=== PATIENT | female | born 1965 | race African-American/Black ===

== ENCOUNTER 2017-04-06 03:41 | Emergency (ER) | payer MEDICAID, OTHER ==
[~2017-04-06] VITALS: Ht 167.6 cm; Wt 59.0 kg
[~2017-04-06 03:41] MED LIST: DIPHENHYDRAMINE25 M1 ORAL; IBUPROFEN600 MG ORAL; IBUPROFEN800 MG ORAL; NKM; NORCO 5-325 TA1 EACH ORAL; ONDANSETRON ODT4 MG ORAL; PREDNISONE20 MG ORAL; TRAMADOL HCL50 MG ORAL; VALIUM5 MG ORAL; ZANTAC150 MG ORAL; ZOFRAN4 MG ORAL
[2017-04-06 04:02] VITALS: BP 109/71
--- NOTE | 2017-04-06 04:18 | Emergency Room Report ---
History of Present Illness General Chief Complaint: Chest Pain Source: Patient Present Illness HPI 51YOF walk-in with 1.5 hours of left sided reproducible chest pain. Sharp, non- radiating, worse with movement. No assoc fever/chills, cough, SOB, abd pain, nausea/vomiting, headache. Didnt take anything for the pain. Denies smoking, ETOH, drug use. No sick contacts. No history of ACS or PE in self, family. Allergies: Coded Allergies: No Known Allergies (Verified Allergy, Unknown, 10/10/08) Patient History Past Medical History: none Past Surgical History: none Pertinent Family History: none Social History: Denies: alcohol use, drug use, smoking Last Menstrual Period: NONE Now: No Immunizations: UTD Reviewed Nursing Documentation: PMH: Agreed, PSxH: Agreed Nursing Documentation-PMH Past Medical History: No Stated History Review of Systems All Other Systems: negative except mentioned in HPI Physical Exam Vital Signs Date Time Temp Pulse Resp B/P Pulse Ox O2 Delivery O2 Flow Rate FiO2 04/06/17 03:43 97.3 66 18 120/75 99 Room Air Sp02 EP Interpretation: reviewed, normal General Appearance: normal inspection, well appearing, no apparent distress, alert, GCS 15, non-toxic Head: normocephalic, atraumatic Eyes: bilateral eye EOMI, bilateral eye PERRL ENT: normal ENT inspection, hearing grossly normal, normal voice Neck: normal inspection, full range of motion, supple, no bony tend Respiratory: normal inspection, lungs clear, normal breath sounds, no respiratory distress, no retraction, no wheezing, other - chest pain reproducible with light palpation to left side of chest. No rash Cardiovascular #1: regular rate, rhythm, no edema Gastrointestinal: normal inspection, normal bowel sounds, non tender, soft, no guarding, no hernia Genitourinary: no CVA tenderness Musculoskeletal: normal inspection, back normal, normal range of motion, Claudia' s Sign negative Neurologic: normal inspection, alert, oriented x3, responsive, legal counsel III-XII nml as tested, motor strength/tone normal, speech normal Psychiatric: normal inspection, judgement/insight normal, mood/affect normal Skin: normal inspection, normal color, no rash Lymphatic: normal inspection Medical Decision Making Diagnostic Impression: Primary Impression: Chest pain Qualified Codes: R07.9 - Chest pain, unspecified Additional Impression: DAVID (acute kidney injury) ER Course Chest pain - VSS. Afebrile. - No clinical signs of PNA - Unlikely ACS. ECG unchanged from comparison to August 2016 ECG. Troponin 0. No new ischemia. No CAD risk factors - Mild DAVID on labs. Patient "Swears" she drinks a lot of water - Low suspicion for PE - no unilateral leg pain/swelling, no hypoxia, tachycardia. No S1Q3T3 on ECG. No other risk factors for PE - Improved pain Sp IV toradol - Gave copy of labs, ECG, advised PMD followup DC Home EKG Diagnostic Results Rate: normal Rhythm: NSR ST Segments: no acute changes ASA given to the pt in ED: No Rhythm Strip Diag. Results EP Interpretation: yes Rate: 59 Rhythm: NSR, no PVC's, no ectopy Chest X-Ray Diagnostic Results EP Interpretation: Yes Findings: no consolidation, no effusion, no pneumothorax, no acute cardiopulmonary disease Number of Views: 1 Last Vital Signs Date Time Temp Pulse Resp B/P Pulse Ox O2 Delivery O2 Flow Rate FiO2 04/06/17 03:43 97.3 66 18 120/75 99 Room Air Status: improved Disposition: HOME, SELF-CARE Referrals: [facility] (PCP) PAWEL VALENTINE M.D. April 06, 2017 04:18
[2017-04-06] MEDS: Ketorolac 60mg Inj IM ONE ×2 (04:19→04:39)
[2017-04-06 04:42] LABS: BASOPHILS % (AUTO) 0.7 % (0.0-2.0); EOSINOPHILS % (AUTO) 0.8 % (0.0-3.0); MEAN CORPUSCULAR HEMOGLOBIN 28.9 PG (27.0-31.0); MEAN CORPUSCULAR HGB CONC 31.8 G/DL (32.0-36.0); MEAN CORPUSCULAR VOLUME 91 FL (80-99); MONOCYTES % (AUTO) 8.8 % (1.0-10.0); NEUTROPHILS % (AUTO) 40.7 % (45.0-75.0); PLATELET COUNT 283 K/UL (150-450); RED BLOOD COUNT 4.04 M/UL (4.20-5.40); RED CELL DISTRIBUTION WIDTH 12.3 % (11.6-14.8); WHITE BLOOD COUNT 5.8 K/UL (4.8-10.8)
[2017-04-06] MEDS ORDERED: Ketorolac 30mg Inj IV ONE (04:45)
[2017-04-06 04:58] LABS: ALANINE AMINOTRANSFERASE 17 U/L (3-33); ALBUMIN/GLOBULIN RATIO 1.5 (1.0-2.7); ANION GAP 13 (5-15); ASPARTATE AMINO TRANSFERASE 26 U/L (5-40); CALCIUM 9.9 mg/dL (8.6-10.2); CARBON DIOXIDE 28 mEQ/L (20-30); CHLORIDE 99 mEQ/L (98-107); GLOMERULAR FILTRATION RATE > 60 mL/min (>60); HEMOLYSIS 4; POTASSIUM 3.9 mEQ/L (3.4-4.9); SODIUM 140 mEQ/L (135-145)
[2017-04-06 05:00] LABS: TROPONIN I < 0.30 ng/mL (<=0.30)
[2017-04-06 05:08] LABS: CKMB < 1.5 ng/mL (< 3.8)
[2017-04-06 05:20] VITALS: BP 110/74
--- NOTE | 2017-04-08 14:48 | Cardiology Report ---
APPROVED REPORT EKG Measurement Heart [id number] Normal sinus rhythm Nonspecific T wave abnormality Abnormal ECG
--- NOTE | 2017-04-09 08:33 | Diagnostic Imaging Report ---
Indication: Chest Pain Comparison: 09/09/16 A single view chest radiograph was obtained. Findings: Cardiomediastinal appearance is within normal limits for age. Pulmonary vascularity is appropriate. The diaphragmatic contour is smooth and costophrenic angles are sharp. No pleural effusions are identified. The bones are unremarkable. Impression: No acute findings
== END 2017-04-06 05:20 | disposition home or self-care (01) ==
LOC: EMR 03:59
DX: R07.89 Other chest pain (principal); N17.9 Acute kidney failure, unspecified
CPT/HCPCS: 36415; 71010; 80053; 82550; 82553; 84484; 85025; 93005; 96374

== ENCOUNTER 2017-04-07 15:24 | Emergency (ER) | payer MEDICAID, OTHER ==
[~2017-04-07] VITALS: Ht 162.6 cm; Wt 72.6 kg
[2017-04-07] MEDS ORDERED: Activated Charcoal 50gm/240ml Btl ORAL ONE (15:30)
[2017-04-07 15:56] VITALS: BP 116/77
[2017-04-07 15:56] LABS: BASOPHILS % (AUTO) 2.5 % (0.0-2.0); MEAN CORPUSCULAR HEMOGLOBIN 31.3 PG (27.0-31.0); MEAN CORPUSCULAR HGB CONC 34.6 G/DL (32.0-36.0); MEAN CORPUSCULAR VOLUME 90 FL (80-99); MEAN PLATELET VOLUME 5.5 FL (6.5-10.1); MONOCYTES % (AUTO) 6.8 % (1.0-10.0); NEUTROPHILS % (AUTO) 42.7 % (45.0-75.0); PLATELET COUNT 226 K/UL (150-450); RED BLOOD COUNT 3.74 M/UL (4.20-5.40); RED CELL DISTRIBUTION WIDTH 12.6 % (11.6-14.8); WHITE BLOOD COUNT 5.7 K/UL (4.8-10.8)
[2017-04-07 16:10] LABS: TROPONIN I < 0.30 ng/mL (<=0.30)
[2017-04-07 16:14] LABS: ACETAMINOPHEN < 10 ug/mL (10-30); ALANINE AMINOTRANSFERASE 15 U/L (3-33); ALBUMIN/GLOBULIN RATIO 1.4 (1.0-2.7); ALCOHOL 22 mg/dL; ANION GAP 20 (5-15); ASPARTATE AMINO TRANSFERASE 24 U/L (5-40); CARBON DIOXIDE 23 mEQ/L (20-30); CHLORIDE 99 mEQ/L (98-107); CREATININE 1.1 mg/dL (0.5-0.9); GLOMERULAR FILTRATION RATE > 60 mL/min (>60); HEMOLYSIS 5; POTASSIUM 3.7 mEQ/L (3.4-4.9); SODIUM 142 mEQ/L (135-145); TOTAL PROTEIN 7.2 g/dL (6.6-8.7)
[2017-04-07 16:24] LABS: CKMB < 1.5 ng/mL (< 3.8)
[2017-04-07 18:33] VITALS: BP 100/61
[2017-04-07 19:15] VITALS: BP 91/55
--- NOTE | 2017-04-07 19:25 | Emergency Room Report ---
History of Present Illness General Chief Complaint: Overdose Source: Patient, EMS (ERNESTO FUNG M.D.) Present Illness HPI 51-year-old female presents ED for evaluation. Patient brought in by EMS for overdose. Patient allegedly took unknown amount of multiple medications. EMS found empty bottles of ibuprofen, naproxen and [place] near the patient. Patient texted her boyfriend who then called 911. Upon arrival patient appears altered with residue around her mouth. Patient is breathing on her own. Patient denies any previous psychiatric history. No prior episode of suicide. No reported drug use. No other aggravating relieving factors. No other associated symptom (ERNESTO FUNG M.D.) Allergies: Coded Allergies: No Known Allergies (Verified , 10/10/08) UNABLE TO ASSESS (Unverified , 04/07/17) Patient History Past Medical History: none Past Surgical History: none Pertinent Family History: none Social History: Denies: alcohol use, drug use, smoking Last Menstrual Period: unknown Now: No Immunizations: UTD Reviewed Nursing Documentation: PMH: Agreed, PSxH: Agreed (ERNESTO FUNG M.D.) Nursing Documentation-PMH Past Medical History Deferred: Pt Cognitively Impaired Past Medical History: Deferred (ERNESTO FUNG M.D.) Review of Systems All Other Systems: negative except mentioned in HPI (ERNESTO FUNG M.D.) Physical Exam Vital Signs Date Time Temp Pulse Resp B/P Pulse Ox O2 Delivery O2 Flow Rate FiO2 04/07/17 15:24 99.7 103 16 132/88 100 Room Air Sp02 EP Interpretation: reviewed, normal General Appearance: no apparent distress, lethargic Head: normocephalic Eyes: bilateral eye PERRL, bilateral eye normal inspection ENT: normal ENT inspection Neck: normal inspection Respiratory: chest non-tender, lungs clear, normal breath sounds, speaking full sentences Cardiovascular #1: regular rate, rhythm, no edema Gastrointestinal: normal inspection Rectal: deferred Genitourinary: no CVA tenderness Musculoskeletal: normal inspection Neurologic: other - altered Psychiatric: other - altered Skin: normal inspection Lymphatic: normal inspection (ERNESTO FUNG M.D.) Medical Decision Making Diagnostic Impression: Primary Impression: Drug overdose Qualified Codes: T50.902A - Poisoning by unspecified drugs, medicaments and biological substances, intentional self-harm, initial encounter Labs Test 04/07/17 15:30 04/07/17 17:40 White Blood Count 5.7 K/UL (4.8-10.8) Red Blood Count 3.74 M/UL (4.20-5.40) Hemoglobin 11.7 G/DL (12.0-16.0) Hematocrit 33.8 % (37.0-47.0) Mean Corpuscular Volume 90 FL (80-99) Mean Corpuscular Hemoglobin 31.3 PG (27.0-31.0) Mean Corpuscular Hemoglobin Concent 34.6 G/DL (32.0-36.0) Red Cell Distribution Width 12.6 % (11.6-14.8) Platelet Count 226 K/UL (150-450) Mean Platelet Volume 5.5 FL (6.5-10.1) Neutrophils (%) (Auto) 42.7 % (45.0-75.0) Lymphocytes (%) (Auto) 47.0 % (20.0-45.0) Monocytes (%) (Auto) 6.8 % (1.0-10.0) Eosinophils (%) (Auto) 1.0 % (0.0-3.0) Basophils (%) (Auto) 2.5 % (0.0-2.0) Sodium Level 142 mEQ/L (135-145) Potassium Level 3.7 mEQ/L (3.4-4.9) Chloride Level 99 mEQ/L (98-107) Carbon Dioxide Level 23 mEQ/L (20-30) Anion Gap 20 (5-15) Blood Urea Nitrogen 11 mg/dL (7-23) Creatinine 1.1 mg/dL (0.5-0.9) Estimat Glomerular Filtration Rate > 60 mL/min (>60) Glucose Level 104 mg/dL (74-106) Calcium Level 10.0 mg/dL (8.6-10.2) Total Bilirubin 0.9 mg/dL (0.0-1.2) Aspartate Amino Transf (AST/SGOT) 24 U/L (5-40) Alanine Aminotransferase (ALT/SGPT) 15 U/L (3-33) Alkaline Phosphatase 83 U/L (35-104) Total Creatine Kinase 96 U/L (26-140) Creatine Kinase MB < 1.5 ng/mL (< 3.8) Creatine Kinase MB Relative Index Troponin I < 0.30 ng/mL (<=0.30) Total Protein 7.2 g/dL (6.6-8.7) Albumin 4.3 g/dL (3.5-5.2) Globulin 2.9 g/dL Albumin/Globulin Ratio 1.4 (1.0-2.7) Salicylates Level < 1 mg/dL (10-30) Acetaminophen Level < 10 ug/mL (10-30) Serum Alcohol 22 mg/dL Urine Opiates Screen Negative (NEGATIVE) Urine Barbiturates Screen Negative (NEGATIVE) Phencyclidine (PCP) Screen Negative (NEGATIVE) Urine Amphetamines Screen Positive (NEGATIVE) Urine Benzodiazepines Screen Negative (NEGATIVE) Urine Cocaine Screen Negative (NEGATIVE) Urine Marijuana (THC) Screen Negative (NEGATIVE) (ERNESTO FUNG M.D.) ER Course Patient signed out to me. She had an overdose on Williams and course of ibuprofen. Her alcohol level was unremarkable. Tylenol and opiates are negative. I doubt that she took this. She did wrote a note regarding suicidality so she will be hold for psychiatric evaluation. She slept the night without a problem. She's been stable. She walked to the bathroom without a problem. Psychiatric evaluation pending. (LAUREANO NICHOLAS M.D.) ER Course The patient was seen and evaluated by Dr. Fowler for psychiatric consult. Patient was noted to have negative acetaminophen levels as well as negative drug screen for opiates. Patient was medically cleared. Dr. Fowelr stated that the patient was safe for discharge. Patient was given referrals for outpatient mental health. (Stoney García) EKG Diagnostic Results Rate: normal Rhythm: NSR ST Segments: no acute changes ASA given to the pt in ED: No (ERNESTO FUNG M.D.) Rhythm Strip Diag. Results EP Interpretation: yes Rhythm: NSR, no PVC's, no ectopy (ERNESTO FUNG M.D.) Last Vital Signs Date Time Temp Pulse Resp B/P Pulse Ox O2 Delivery O2 Flow Rate FiO2 04/07/17 18:33 99 26 100/61 98 Room Air 04/07/17 15:24 99.7 Status: unchanged (ERNESTO FUNG M.D.) Status: improved (Stoney García) Disposition: HOME, SELF-CARE Condition: Stable Referrals: [facility] (PCP) ERNESTO FUNG M.D. April 07, 2017 19:25 LAUREANO NICHOLAS M.D. April 08, 2017 06:02 Stoney García April 08, 2017 10:12
[2017-04-07 19:44] LABS: ACETAMINOPHEN < 10 ug/mL (10-30)
[2017-04-07 21:00] VITALS: BP 103/69
[2017-04-08] VITALS (8 sets, daily range): BP systolic 91–115; BP diastolic 56–70
--- NOTE | 2017-04-08 09:04 | Diagnostic Imaging Report ---
Indication: Cough Technique: Single portable AP view of the chest. Findings: Comparison: 04/06/17 The bones and extra pulmonary soft tissues, cardiomediastinal silhouette, pulmonary vasculature and parenchyma, and pleural surfaces remain unremarkable. IMPRESSION: Negative portable AP chest, unchanged.
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
--- NOTE | 2017-04-10 18:38 | Cardiology Report ---
APPROVED REPORT EKG Measurement Heart [id number] Normal sinus rhythm Possible Left atrial enlargement Nonspecific T wave abnormality Abnormal ECG
== END 2017-04-08 12:56 | disposition home or self-care (01) ==
LOC: EDBD 15:24 → EMR 15:30
DX: T39.312A Poisoning by propionic acid derivatives, intentional self-harm, initial encounter (principal); T40.2X2A Poisoning by other opioids, intentional self-harm, initial encounter; R41.82 Altered mental status, unspecified; Y92.89 Other specified places as the place of occurrence of the external cause
CPT/HCPCS: 36415; 71010; 80053; 80300; 80329; 82550; 82553; 84484; 85025; 93005; 96360; 99285; G0480

== ENCOUNTER 2017-06-30 01:13 | Emergency (ER) | payer MEDICAID, OTHER ==
[~2017-06-30] VITALS: Ht 167.6 cm; Wt 61.2 kg
--- NOTE | 2017-06-30 02:04 | Emergency Room Report ---
History of Present Illness General Chief Complaint: Overdose Source: Patient Present Illness HPI Is a 52-year-old female who came in with chief complaint of overdose. She said she unable to sleep and took a couple of Ambien. After 30 minutes or an hour she couldn't sleep and she took some more. In toto she took 5. She called her cousin and because of the number of pills that she took she drove here to be evaluated. Patient denies suicidal thoughts or homicidal thought. Denies any hallucination. Denies any alcohol drugs. She is sleepy now. Allergies: Coded Allergies: No Known Allergies (Verified , 10/10/08) UNABLE TO ASSESS (Unverified , 04/07/17) Patient History Past Medical History: see triage record, old chart reviewed Past Surgical History: other Pertinent Family History: none Social History: Denies: smoking Now: No Immunizations: other Reviewed Nursing Documentation: PMH: Agreed, PSxH: Agreed Nursing Documentation-PMH History Of Psychiatric Problem: Yes Review of Systems Eye: Denies: blurred vision, eye pain ENT: Denies: ear pain, nose congestion, throat swelling Respiratory: Denies: cough, shortness of breath Cardiovascular: Denies: chest pain, palpitations Gastrointestinal: Denies: abdominal pain, diarrhea, nausea, vomiting Musculoskeletal: Denies: back pain, joint pain Skin: Denies: rash Neurological: Denies: headache, numbness Endocrine: Denies: increased thirst, increased urine Hematologic/Lymphatic: Denies: easy bruising All Other Systems: negative except mentioned in HPI Physical Exam Vital Signs Date Time Temp Pulse Resp B/P Pulse Ox O2 Delivery O2 Flow Rate FiO2 06/30/17 01:19 97.9 91 16 120/80 99 Room Air vitals megan Sp02 EP Interpretation: reviewed, normal General Appearance: well appearing, no apparent distress, other - Drowsy and sleepy but answering questions appropriately Head: normocephalic, atraumatic Eyes: bilateral eye EOMI, bilateral eye PERRL ENT: hearing grossly normal, normal pharynx Neck: full range of motion, supple, no meningismus Respiratory: chest non-tender, lungs clear, normal breath sounds Cardiovascular #1: regular rate, rhythm, no murmur Gastrointestinal: normal bowel sounds, non tender, no mass, no organomegaly, no bruit, non-distended Musculoskeletal: back normal, gait/station normal, normal range of motion Psychiatric: mood/affect normal Skin: warm/dry Medical Decision Making Diagnostic Impression: Primary Impression: Drug overdose Qualified Codes: T50.901A - Poisoning by unspecified drugs, medicaments and biological substances, accidental (unintentional), initial encounter ER Course Patient presents with accidental overdose. She's not suicidal or homicidal. She sleeping now. We'll discharge home in the morning. Lab Results Impression labs unremarkable Last Vital Signs Date Time Temp Pulse Resp B/P Pulse Ox O2 Delivery O2 Flow Rate FiO2 06/30/17 01:19 97.9 91 16 120/80 99 Room Air Status: improved Disposition: HOME, SELF-CARE Condition: Stable Patient Instructions: OVERDOSE, Accidental (Adult) Additional Instructions: Taking medication as prescribed. Followup with your Dr. in 2-3 days. Return if worse. LAUREANO NICHOLAS M.D. Jun 30, 2017 02:04
[2017-06-30 02:15] VITALS: BP 120/80
[2017-06-30 02:29] LABS: BASOPHILS % (AUTO) 1.4 % (0.0-2.0); EOSINOPHILS % (AUTO) 1.5 % (0.0-3.0); MEAN CORPUSCULAR HEMOGLOBIN 29.6 PG (27.0-31.0); MEAN CORPUSCULAR VOLUME 92 FL (80-99); MEAN PLATELET VOLUME 6.3 FL (6.5-10.1); NEUTROPHILS % (AUTO) 38.1 % (45.0-75.0); PLATELET COUNT 290 K/UL (150-450); RED BLOOD COUNT 3.88 M/UL (4.20-5.40); WHITE BLOOD COUNT 5.6 K/UL (4.8-10.8)
[2017-06-30 02:45] LABS: ACETAMINOPHEN < 10 ug/mL (10-30); ALANINE AMINOTRANSFERASE 27 U/L (3-33); ALBUMIN/GLOBULIN RATIO 1.2 (1.0-2.7); ALCOHOL < 10 mg/dL; ANION GAP 14 (5-15); ASPARTATE AMINO TRANSFERASE 39 U/L (5-40); CALCIUM 9.7 mg/dL (8.6-10.2); CARBON DIOXIDE 25 mEQ/L (20-30); CHLORIDE 99 mEQ/L (98-107); CREATININE 0.9 mg/dL (0.5-0.9); GLOMERULAR FILTRATION RATE > 60 mL/min (>60); HEMOLYSIS 3; POTASSIUM 3.7 mEQ/L (3.4-4.9); SODIUM 138 mEQ/L (135-145); TOTAL PROTEIN 7.5 g/dL (6.6-8.7)
[2017-06-30 04:15] VITALS: BP 128/75
[2017-06-30 06:15] VITALS: BP 105/84
[2017-06-30 06:20] VITALS: BP 105/84
== END 2017-06-30 06:20 | disposition home or self-care (01) ==
LOC: EMR 02:11
DX: T42.6X1A Poisoning by other antiepileptic and sedative-hypnotic drugs, accidental (unintentional), initial encounter (principal); X58.XXXA Exposure to other specified factors, initial encounter; Y93.9 Activity, unspecified; Y92.9 Unspecified place or not applicable
CPT/HCPCS: 36415; 80053; 80300; 80329; 85025; 99283

== ENCOUNTER 2017-08-14 06:44 | Inpatient (IN) | payer MEDICAID ==
[~2017-08-14] VITALS: Ht 167.6 cm; Wt 62.6 kg
[2017-08-14 07:05] VITALS: BP 94/69
--- NOTE | 2017-08-14 07:40 | Emergency Room Report ---
History of Present Illness General Chief Complaint: Chest Pain Source: Patient Present Illness HPI The patient woke up this morning with chest pain. Started on the right-hand side but then moved more centrally. It was worsened when she got up and moved about. She states is 9/10, pressure and throbbing. It radiates to the right- hand side to the left. She had this type of pain about a year ago. She was evaluated and they couldn't find a cause of. She denies any fevers, cough, sore throat or trauma. She has no cardiac risk factors. She had knee surgery many years ago and denies any calf pain swelling dyspnea hemoptysis. She doesn' t like taking medication and didn't take anything for the pain this morning. No nausea, vomiting, diarrhea, dysuria. No rashes. 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 She denies having any increased activity recently. 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 Reviewed Nursing Documentation: PMH: Agreed, PSxH: Agreed Review of Systems All Other Systems: negative except mentioned in HPI Physical Exam Vital Signs Date Time Temp Pulse Resp B/P (MAP) Pulse Ox O2 Delivery O2 Flow Rate FiO2 08/14/17 06:52 98.2 78 19 94/69 99 Room Air Sp02 EP Interpretation: reviewed, normal General Appearance: well appearing, no apparent distress, GCS 15 Head: normocephalic Eyes: bilateral eye normal inspection, bilateral eye PERRL ENT: moist mucus membranes Neck: supple Respiratory: lungs clear, normal breath sounds, other - some chest wall tenderness Cardiovascular #1: regular rate, rhythm Cardiovascular #2: 2+ radial (R) Gastrointestinal: normal inspection, normal bowel sounds, non tender, no mass, non-distended Musculoskeletal: back normal, gait/station normal, normal range of motion Neurologic: alert, oriented x3, grossly normal Psychiatric: depressed affect Skin: normal inspection, warm/dry Medical Decision Making Diagnostic Impression: Primary Impression: Chest pain Qualified Codes: R07.9 - Chest pain, unspecified ER Course The patient presents with chest pain. Vital signs this does not appear to be a pulmonary embolus. Exam is more consistent with chest wall pain however we need to exclude cardiac cause. EKG, chest x-ray and labs will be performed. The patient doesn't like taking medication however agree to take something for the pain. Motrin will be given. EKG is normal sinus rhythm, rate of 60 and normal EKG with normal axis. After ibuprofen the patient states that the pain got worse. She feels a throbbing pressure. We will be EKG. Also at this point we'll start an IV and give her aspirin and nitrates. The patient will need to be admitted for observation. Repeat EKG: rate 67, nl axis,, NSSTTW changes. Improved with morphine 5/10. Nitrates not help patient. Etiology of chest pain unclear. Laboratory Tests Test 08/14/17 08:11 White Blood Count 3.5 K/UL (4.8-10.8) L Red Blood Count 3.73 M/UL (4.20-5.40) L Hemoglobin 11.3 G/DL (12.0-16.0) L Hematocrit 34.0 % (37.0-47.0) L Mean Corpuscular Volume 91 FL (80-99) Mean Corpuscular Hemoglobin 30.4 PG (27.0-31.0) Mean Corpuscular Hemoglobin Concent 33.3 G/DL (32.0-36.0) Red Cell Distribution Width 11.8 % (11.6-14.8) Platelet Count 231 K/UL (150-450) Mean Platelet Volume 7.1 FL (6.5-10.1) Neutrophils (%) (Auto) 40.0 % (45.0-75.0) L Lymphocytes (%) (Auto) 46.4 % (20.0-45.0) H Monocytes (%) (Auto) 10.4 % (1.0-10.0) H Eosinophils (%) (Auto) 2.1 % (0.0-3.0) Basophils (%) (Auto) 1.2 % (0.0-2.0) Sodium Level 141 mEQ/L (135-145) Potassium Level 3.9 mEQ/L (3.4-4.9) Chloride Level 102 mEQ/L (98-107) Carbon Dioxide Level 27 mEQ/L (20-30) Anion Gap 12 (5-15) Blood Urea Nitrogen 7 mg/dL (7-23) Creatinine 0.9 mg/dL (0.5-0.9) Estimate Glomerular Filtration Rate > 60 mL/min (>60) Glucose Level 102 mg/dL (74-106) Calcium Level 9.1 mg/dL (8.6-10.2) Total Bilirubin 0.3 mg/dL (0.0-1.2) Aspartate Amino Transferase (AST) 23 U/L (5-40) Alanine Aminotransferase (ALT) 13 U/L (3-33) Alkaline Phosphatase 71 U/L (35-104) Total Creatine Kinase 102 U/L (26-140) Creatine Kinase MB < 1.5 ng/mL (< 3.8) Creatine Kinase MB Relative Index Troponin I < 0.30 ng/mL (<=0.30) Pro-B-Type Natriuretic Peptide 28 pg/mL (0-125) Total Protein 6.6 g/dL (6.6-8.7) Albumin 4.0 g/dL (3.5-5.2) Globulin 2.6 g/dL Albumin/Globulin Ratio 1.5 (1.0-2.7) EKG Diagnostic Results Rate: normal Rhythm: NSR ST Segments: no acute changes Rhythm Strip Diag. Results EP Interpretation: yes Rhythm: NSR, no PVC's, no ectopy Chest X-Ray Diagnostic Results Chest X-Ray Diagnostic Results : Chest X-Ray Ordered: Yes # of Views/Limited/Complete: 1 View Indication: Chest Pain EP Interpretation: Yes Interpretation: no consolidation, no effusion, no pneumothorax, no acute cardiopulmonary disease Impression: No acute disease Electronically Signed by: Electronically signed by Evens Ayala MD Last Vital Signs Date Time Temp Pulse Resp B/P (MAP) Pulse Ox O2 Delivery O2 Flow Rate FiO2 08/14/17 20:30 98.2 68 18 99/59 97 Room Air 08/14/17 20:22 21 Status: improved Disposition: ADMITTED INPATIENT Condition: Serious Referrals: [facility],REFERR[facility] (PCP) Evens Ayala M.D. Aug 14, 2017 07:40
[2017-08-14 08:28] LABS: BASOPHILS % (AUTO) 1.2 % (0.0-2.0); EOSINOPHILS % (AUTO) 2.1 % (0.0-3.0); LYMPHOCYTES % (AUTO) 46.4 % (20.0-45.0); MEAN CORPUSCULAR HEMOGLOBIN 30.4 PG (27.0-31.0); MEAN CORPUSCULAR HGB CONC 33.3 G/DL (32.0-36.0); MEAN CORPUSCULAR VOLUME 91 FL (80-99); MEAN PLATELET VOLUME 7.1 FL (6.5-10.1); MONOCYTES % (AUTO) 10.4 % (1.0-10.0); PLATELET COUNT 231 K/UL (150-450); RED BLOOD COUNT 3.73 M/UL (4.20-5.40); RED CELL DISTRIBUTION WIDTH 11.8 % (11.6-14.8); WHITE BLOOD COUNT 3.5 K/UL (4.8-10.8)
[2017-08-14 08:34] VITALS: BP 101/67
[2017-08-14 08:34] LABS: TROPONIN I < 0.30 ng/mL (<=0.30)
[2017-08-14 08:37] LABS: ALANINE AMINOTRANSFERASE 13 U/L (3-33); ALBUMIN/GLOBULIN RATIO 1.5 (1.0-2.7); ANION GAP 12 (5-15); ASPARTATE AMINO TRANSFERASE 23 U/L (5-40); CALCIUM 9.1 mg/dL (8.6-10.2); CARBON DIOXIDE 27 mEQ/L (20-30); CHLORIDE 102 mEQ/L (98-107); CREATININE 0.9 mg/dL (0.5-0.9); GLOMERULAR FILTRATION RATE > 60 mL/min (>60); HEMOLYSIS 1; POTASSIUM 3.9 mEQ/L (3.4-4.9); SODIUM 141 mEQ/L (135-145); TOTAL PROTEIN 6.6 g/dL (6.6-8.7)
[2017-08-14 08:48] LABS: CKMB < 1.5 ng/mL (< 3.8)
[2017-08-14] MEDS ORDERED: Aspirin EC 325mg tab ORAL STA (09:05)
[2017-08-14] MEDS ORDERED: Nitroglycerin Subl 0.4mg tab SL PRN ×2 (09:15→13:30)
[2017-08-14] MEDS ORDERED: Nitroglycerin 2% oint pkt TOPIC ONE (09:15)
[2017-08-14] MEDS ORDERED: Mylanta II UD 30ml ORAL ONE (09:15)
[2017-08-14] MEDS ORDERED: Morphine Sulfate 4mg/ml Inj IVP ONE (09:45)
--- NOTE | 2017-08-14 11:10 | Diagnostic Imaging Report ---
Indication: Chest pain Comparison: 04/07/17 A single view chest radiograph was obtained. Findings: Cardiomediastinal appearance is within normal limits for age. Pulmonary vascularity is appropriate. The diaphragmatic contour is smooth and costophrenic angles are sharp. No pleural effusions are identified. The bones are unremarkable. Impression: No acute findings
[2017-08-14 11:15] VITALS: BP 100/66
[2017-08-14 12:00] VITALS: BP 104/59
[2017-08-14] MEDS ORDERED: Morphine Sulfate 2mg/ml Inj IVP PRN (13:30)
[2017-08-14] MEDS ORDERED: Miralax 17gm pkt ORAL PRN (13:30)
[2017-08-14] MEDS ORDERED: Albuterol/Ipratropium 3ml neb HHN PRN (13:30)
[2017-08-14] MEDS ORDERED: Ketorolac 30mg Inj IV PRN (13:30)
[2017-08-14] MEDS ORDERED: Enalaprilat 2.5mg/2ml Inj IV PRN (13:30)
[2017-08-14] MEDS ORDERED: dilTIAZem HCl 25mg/5ml Inj IV PRN (13:30)
[2017-08-14 13:36] LABS: TROPONIN I < 0.30 ng/mL (<=0.30)
[2017-08-14 16:00] VITALS: BP 95/61
--- NOTE | 2017-08-14 19:49 | Cardiology Progress Note ---
Assessment/Plan Assessment/Plan chest pain liekey chest wall syndrome trop in am echo d dimer if all neg may be able to go gerber ein am fu with pmd mobic for pain [id number] Objective Last 24 Hour Vital Signs Date Time Temp Pulse Resp B/P (MAP) Pulse Ox O2 Delivery O2 Flow Rate FiO2 08/14/17 16:00 97.2 57 17 95/61 97 Room Air 08/14/17 15:48 68 16 Room Air 21 08/14/17 15:13 69 08/14/17 12:00 96.8 61 16 104/59 95 Room Air 08/14/17 11:56 59 08/14/17 11:23 54 08/14/17 11:15 66 15 100/66 100 Room Air 08/14/17 11:15 98.6 66 17 100/66 100 Room Air 08/14/17 10:17 98.4 08/14/17 09:25 101/67 08/14/17 09:25 101/67 08/14/17 08:38 98.4 08/14/17 08:34 98.4 54 17 101/67 100 Room Air 08/14/17 07:05 66 17 Room Air 08/14/17 07:05 98.2 66 17 94/69 100 Room Air 08/14/17 06:52 98.2 78 19 94/69 99 Room Air Intake and Output 08/14/17 08/15/17 19:00 07:00 Intake Total 440 ml Balance 440 ml Intake Oral 440 ml # Voids 1 Laboratory Tests Test 08/14/17 08:11 08/14/17 13:15 White Blood Count 3.5 K/UL (4.8-10.8) L Red Blood Count 3.73 M/UL (4.20-5.40) L Hemoglobin 11.3 G/DL (12.0-16.0) L Hematocrit 34.0 % (37.0-47.0) L Mean Corpuscular Volume 91 FL (80-99) Mean Corpuscular Hemoglobin 30.4 PG (27.0-31.0) Mean Corpuscular Hemoglobin Concent 33.3 G/DL (32.0-36.0) Red Cell Distribution Width 11.8 % (11.6-14.8) Platelet Count 231 K/UL (150-450) Mean Platelet Volume 7.1 FL (6.5-10.1) Neutrophils (%) (Auto) 40.0 % (45.0-75.0) L Lymphocytes (%) (Auto) 46.4 % (20.0-45.0) H Monocytes (%) (Auto) 10.4 % (1.0-10.0) H Eosinophils (%) (Auto) 2.1 % (0.0-3.0) Basophils (%) (Auto) 1.2 % (0.0-2.0) Sodium Level 141 mEQ/L (135-145) Potassium Level 3.9 mEQ/L (3.4-4.9) Chloride Level 102 mEQ/L (98-107) Carbon Dioxide Level 27 mEQ/L (20-30) Anion Gap 12 (5-15) Blood Urea Nitrogen 7 mg/dL (7-23) Creatinine 0.9 mg/dL (0.5-0.9) Estimat Glomerular Filtration Rate > 60 mL/min (>60) Glucose Level 102 mg/dL (74-106) Calcium Level 9.1 mg/dL (8.6-10.2) Total Bilirubin 0.3 mg/dL (0.0-1.2) Aspartate Amino Transf (AST/SGOT) 23 U/L (5-40) Alanine Aminotransferase (ALT/SGPT) 13 U/L (3-33) Alkaline Phosphatase 71 U/L (35-104) Total Creatine Kinase 102 U/L (26-140) Creatine Kinase MB < 1.5 ng/mL (< 3.8) Creatine Kinase MB Relative Index Troponin I < 0.30 ng/mL (<=0.30) < 0.30 ng/mL (<=0.30) Pro-B-Type Natriuretic Peptide 28 pg/mL (0-125) Total Protein 6.6 g/dL (6.6-8.7) Albumin 4.0 g/dL (3.5-5.2) Globulin 2.6 g/dL Albumin/Globulin Ratio 1.5 (1.0-2.7) TANISHA COLLADO Aug 14, 2017 19:49
[2017-08-14 20:30] VITALS: BP 99/59
[2017-08-14] MEDS: Heparin 5000 units/ml inj SUBQ SCH (21:06)
--- NOTE | 2017-08-14 22:43 | History and Physical ---
History of Present Illness General Date patient seen: Aug 14, 2017 Reason for Hospitalization: Chest Pain Present Illness HPI 52 year old female without any PMHx presented to [facility] [place] with CC of chest pain. She had this type of pain about a year ago. She denies any fevers, cough, sore throat or trauma. She has no cardiac risk factors. No nausea, vomiting, diarrhea, dysuria. No rashes. She is admitted to telemetry for further evaluation Allergies: Coded Allergies: No Known Allergies (Verified , 10/10/08) Medication History Scheduled No Known Medications* (NKM - No Known Medications*), 0 ., (Reported) Patient History Healthcare decision maker Resuscitation status Full Code Advanced Directive on File No Past Medical/Surgical History Past Medical/Surgical History: (1) Sprain hip/thigh Review of Systems All Other Systems: negative except mentioned in HPI Physical Exam General Appearance: WD/WN Lines, tubes and drains: peripheral HEENT: normocephalic, atraumatic Neck: non-tender, normal alignment Respiratory/Chest: chest wall non-tender, lungs clear Cardiovascular/Chest: normal peripheral pulses, normal rate Abdomen: normal bowel sounds Genitourinary/Rectal: normal genital exam Extremities: normal range of motion, non-tender Skin Exam: normal pigmentation Neurologic: deli clerk II-XII grossly normal Last 24 Hour Vital Signs Date Time Temp Pulse Resp B/P (MAP) Pulse Ox O2 Delivery O2 Flow Rate FiO2 08/14/17 20:30 98.2 68 18 99/59 97 Room Air 08/14/17 20:22 57 16 Room Air 21 08/14/17 20:00 69 08/14/17 16:00 97.2 57 17 95/61 97 Room Air 08/14/17 15:48 68 16 Room Air 21 08/14/17 15:13 69 08/14/17 12:00 96.8 61 16 104/59 95 Room Air 08/14/17 11:56 59 08/14/17 11:23 54 08/14/17 11:15 66 15 100/66 100 Room Air 08/14/17 11:15 98.6 66 17 100/66 100 Room Air 08/14/17 10:17 98.4 08/14/17 09:25 101/67 08/14/17 09:25 101/67 08/14/17 08:38 98.4 08/14/17 08:34 98.4 54 17 101/67 100 Room Air 08/14/17 07:05 66 17 Room Air 08/14/17 07:05 98.2 66 17 94/69 100 Room Air 08/14/17 06:52 98.2 78 19 94/69 99 Room Air Intake and Output 08/14/17 08/15/17 19:00 07:00 Intake Total 440 ml Balance 440 ml Intake Oral 440 ml # Voids 1 Laboratory Tests Test 08/14/17 08:11 08/14/17 13:15 08/14/17 20:20 White Blood Count 3.5 K/UL (4.8-10.8) L Red Blood Count 3.73 M/UL (4.20-5.40) L Hemoglobin 11.3 G/DL (12.0-16.0) L Hematocrit 34.0 % (37.0-47.0) L Mean Corpuscular Volume 91 FL (80-99) Mean Corpuscular Hemoglobin 30.4 PG (27.0-31.0) Mean Corpuscular Hemoglobin Concent 33.3 G/DL (32.0-36.0) Red Cell Distribution Width 11.8 % (11.6-14.8) Platelet Count 231 K/UL (150-450) Mean Platelet Volume 7.1 FL (6.5-10.1) Neutrophils (%) (Auto) 40.0 % (45.0-75.0) L Lymphocytes (%) (Auto) 46.4 % (20.0-45.0) H Monocytes (%) (Auto) 10.4 % (1.0-10.0) H Eosinophils (%) (Auto) 2.1 % (0.0-3.0) Basophils (%) (Auto) 1.2 % (0.0-2.0) Sodium Level 141 mEQ/L (135-145) Potassium Level 3.9 mEQ/L (3.4-4.9) Chloride Level 102 mEQ/L (98-107) Carbon Dioxide Level 27 mEQ/L (20-30) Anion Gap 12 (5-15) Blood Urea Nitrogen 7 mg/dL (7-23) Creatinine 0.9 mg/dL (0.5-0.9) Estimat Glomerular Filtration Rate > 60 mL/min (>60) Glucose Level 102 mg/dL (74-106) Calcium Level 9.1 mg/dL (8.6-10.2) Total Bilirubin 0.3 mg/dL (0.0-1.2) Aspartate Amino Transf (AST/SGOT) 23 U/L (5-40) Alanine Aminotransferase (ALT/SGPT) 13 U/L (3-33) Alkaline Phosphatase 71 U/L (35-104) Total Creatine Kinase 102 U/L (26-140) Creatine Kinase MB < 1.5 ng/mL (< 3.8) Creatine Kinase MB Relative Index Troponin I < 0.30 ng/mL (<=0.30) < 0.30 ng/mL (<=0.30) Pro-B-Type Natriuretic Peptide 28 pg/mL (0-125) Total Protein 6.6 g/dL (6.6-8.7) Albumin 4.0 g/dL (3.5-5.2) Globulin 2.6 g/dL Albumin/Globulin Ratio 1.5 (1.0-2.7) D-Dimer < 100 ng/mL (<500) Height (Feet): 5 Height (Inches): 6.00 Weight (Pounds): 138 Medications Current Medications Medications (Trade) Dose Ordered Sig/Panda Route PRN Reason Start Time Stop Time Status Last Admin Dose Admin Acetaminophen (Tylenol) 650 mg Q4H PRN ORAL FEVER>100.5 08/14/17 13:30 09/13/17 13:29 08/14/17 21:01 Albuterol/ Ipratropium (DuoNeb 0.5-3(2.5)mg/3ml) 3 ml Q4H PRN HHN Shortness of Breath 08/14/17 13:30 08/19/17 13:29 Aspirin (ASA) 162 mg DAILY ORAL 08/15/17 09:00 09/14/17 08:59 Diltiazem HCl (Cardizem) 10 mg Q1H PRN IV heart rate more than 120, 08/14/17 13:30 09/13/17 13:29 Enalaprilat (Vasotec) 2.5 mg Q6H PRN IV sbp more than 160 08/14/17 13:30 09/13/17 13:29 Heparin Sodium (Porcine) (Heparin 5000 units/ml) 5,000 units EVERY 12 HOURS SUBQ 08/14/17 21:00 09/13/17 20:59 08/14/17 21:06 Ketorolac Tromethamine (Toradol 30mg) 30 mg Q6HR PRN IV Moderate Pain (Pain Scale 4-6) 08/14/17 13:30 08/19/17 13:29 Morphine Sulfate (Morphine Sulfate) 2 mg EVERY 4 HOURS PRN IVP severe Pain (Pain Scale 7-10) 08/14/17 13:30 08/21/17 13:29 Nitroglycerin (Ntg) 0.4 mg Q5M PRN SL Prn Chest Pain 08/14/17 13:30 09/13/17 13:29 Ondansetron HCl (Zofran) 4 mg Q6H PRN IVP Nausea & Vomiting 08/14/17 13:30 09/13/17 13:29 08/14/17 13:55 Pantoprazole (Protonix) 40 mg ACBREAKFAST ORAL 08/15/17 06:30 09/14/17 06:29 Polyethylene Glycol (Miralax) 17 gm DAILYPRN PRN ORAL Constipation 08/14/17 13:30 09/13/17 13:29 Temazepam (Restoril) 15 mg HSPRN PRN ORAL Insomnia 08/14/17 21:00 08/21/17 20:59 Assessment/Plan Problem List: (1) ACS (acute coronary syndrome) ICD Codes: I24.9 - Acute ischemic heart disease, unspecified SNOMED: 552036608 (2) Chest pain ICD Codes: R07.9 - Chest pain, unspecified SNOMED: 80481860 Qualifiers: Qualified Codes: R07.9 - Chest pain, unspecified (3) Costochondritis ICD Codes: M94.0 - Chondrocostal junction syndrome [Tietze] SNOMED: 06149135 Assessment/Plan serial ekg, troponin, cardiology evaluation symptomatic treatment serial ekg, ELLY PAUL Aug 14, 2017 22:43
[2017-08-15 00:16] VITALS: BP 101/57
[2017-08-15 04:21] VITALS: BP 99/47
[2017-08-15 08:16] LABS: EOSINOPHILS % (AUTO) 1.5 % (0.0-3.0); LYMPHOCYTES % (AUTO) 41.3 % (20.0-45.0); MEAN CORPUSCULAR HGB CONC 32.3 G/DL (32.0-36.0); MEAN CORPUSCULAR VOLUME 93 FL (80-99); MEAN PLATELET VOLUME 6.8 FL (6.5-10.1); MONOCYTES % (AUTO) 7.6 % (1.0-10.0); NEUTROPHILS % (AUTO) 48.6 % (45.0-75.0); PLATELET COUNT 229 K/UL (150-450); RED BLOOD COUNT 3.87 M/UL (4.20-5.40); RED CELL DISTRIBUTION WIDTH 11.7 % (11.6-14.8); WHITE BLOOD COUNT 4.9 K/UL (4.8-10.8)
[2017-08-15 08:23] LABS: CHOLESTEROL 236 mg/dL (< 200); CHOLESTEROL/HDL RATIO 2.6 (3.3-4.4); CRP QUANT < 0.3 mg/dL (< 0.5); HEMOLYSIS 2; LDL CHOLESTEROL CALC 131 mg/dL (60-99)
[2017-08-15 08:36] VITALS: BP 94/55
[2017-08-15 08:39] LABS: PROTHROMBIN TIME 10.1 SEC (9.30-11.50)
[2017-08-15 08:41] LABS: TROPONIN I < 0.30 ng/mL (<=0.30)
--- NOTE | 2017-08-15 08:46 | Consultation ---
DATE OF CONSULTATION: 08/14/2017 CARDIOLOGY CONSULTATION CONSULTING PHYSICIAN: Jason Leung M.D. REFERRING PHYSICIAN: Beatriz Rodriguez M.D. REASON FOR CONSULTATION: Chest pain. History Of Present Illness: The patient is a 52-year-old female who woke up this morning with pain in the right-sided chest radiated towards center in the left side of her chest. The pain is not present all day, she gets pain medication. She has had a similar condition approximately a year and half ago that resolved after some time. No cause was found at this time. The really big exacerbating factors to the present discomfort is movements of any degree, try to sitting up, lying back down, twisting, turning, taking a deep breath, coughing, and not as much of walking. She uses 2 pillows. There is no PND, but she does get occasionally shortness of breath. There is no palpitation. There is occasional dizziness or lightheadedness. PAST MEDICAL HISTORY: She denies all questions. ALLERGIES: No known allergies. Social History: She does not smoke, never did. She does not drink, never did. Denies any drug use. Review Of Systems: Gastrointestinal: Positive for nausea, otherwise, negative. Genitourinary: Negative. Pulmonary: Negative. Constitutional: Negative. Neurological: Negative. PHYSICAL EXAMINATION: General: Physical examination shows her to be middle-aged female, in no respiratory distress. When she tries to sit up for examination early back down in bed, she has got more intense pain in the chest wall area. LUNGS: Clear to auscultation and percussion. Cardiac: S1 is normal. S2 is normal. Regular rate and rhythm. No heaves, thrills, gallops, or rubs are noted. Abdomen: Soft and nontender. Positive bowel sounds. Chest wall is tender to palpation. Reproduces the same exact pain that the patient has been experiencing this morning. EXTREMITIES: There is no clubbing, cyanosis, or edema. Neurological: She is awake, alert, responsive, in no apparent respiratory distress. Laboratory And Diagnostic Data: Sodium 140, potassium 3.9, chloride 102, bicarbonate 27, BUN of 7, and creatinine 0.9. Liver function tests are normal. BNP was only 28. Two sets of cardiac enzymes so far were negative. White count 3.5, hemoglobin 11.3, and platelet count 231,000. Chest x-ray was performed in the emergency room with basically no acute distress. The patient's electrocardiogram shows basically sinus rhythm. Some nonspecific ST-T wave abnormalities are noted. ASSESSMENT AND PLAN: 1. Chest pain, likely chest wall syndrome. 2. Two sets of cardiac enzymes are negative. At this time, the patient in the morning. She had echocardiogram to rule out pericardial effusion. D-dimer will be ordered. However, I strongly suspect that this is likely musculoskeletal pain and not a pleuritic or cardiac pain based on the description of exacerbating factors and relieving factors. Jason Leung M.D. DR: BOBBI JOB#: [id number] CC:
[2017-08-15] MEDS ORDERED: Aspirin Baby 81mg ORAL SCH (09:00)
[2017-08-15] MEDS: Heparin 5000 units/ml inj SUBQ SCH (09:00)
[2017-08-15] MEDS ORDERED: PROTONIX40 MG ORAL (12:26)
--- NOTE | 2017-08-15 12:28 | Pulmonology Progress Note ---
Assessment/Plan Problems: (1) ACS (acute coronary syndrome) (2) Chest pain (3) Costochondritis Assessment/Plan all enzymes negative f/u cardio recommendation might go home if cleared by cardio Subjective ROS Limited/Unobtainable: No Constitutional: Reports: no symptoms HEENT: Repors: no symptoms Respiratory: Reports: no symptoms Allergies: Coded Allergies: No Known Allergies (Verified , 10/10/08) Objective Last 24 Hour Vital Signs Date Time Temp Pulse Resp B/P (MAP) Pulse Ox O2 Delivery O2 Flow Rate FiO2 08/15/17 08:36 98.1 81 18 94/55 98 Room Air 08/15/17 08:27 69 16 Room Air 21 08/15/17 04:21 98.0 57 20 99/47 98 Room Air 08/15/17 04:00 50 08/15/17 00:16 98.0 61 16 101/57 96 Room Air 08/15/17 00:00 55 08/14/17 20:30 98.2 68 18 99/59 97 Room Air 08/14/17 20:22 57 16 Room Air 21 08/14/17 20:00 69 08/14/17 16:00 97.2 57 17 95/61 97 Room Air 08/14/17 15:48 68 16 Room Air 21 08/14/17 15:13 69 Intake and Output 08/15/17 08/16/17 19:00 07:00 Intake Total 120 ml Balance 120 ml Intake Oral 120 ml General Appearance: WD/WN HEENT: normocephalic, atraumatic, anicteric Respiratory/Chest: chest wall non-tender, lungs clear Breasts: no masses Cardiovascular: normal peripheral pulses Abdomen: normal bowel sounds, soft, non tender Extremities: no cyanosis, no clubbing Laboratory Tests 08/14/17 13:15: Troponin I < 0.30 08/14/17 20:20: D-Dimer < 100 08/15/17 07:35: Troponin I < 0.30, White Blood Count 4.9, Red Blood Count 3.87L, Hemoglobin 11.6L, Hematocrit 35.9L, Mean Corpuscular Volume 93, Mean Corpuscular Hemoglobin 30.0, Mean Corpuscular Hemoglobin Concent 32.3, Red Cell Distribution Width 11.7, Platelet Count 229, Mean Platelet Volume 6.8, Neutrophils (%) (Auto) 48.6, Lymphocytes (%) (Auto) 41.3, Monocytes (%) (Auto) 7.6, Eosinophils (%) (Auto) 1.5, Basophils (%) (Auto) 1.0, Prothrombin Time 10.1 , Prothromb Time International Ratio 1.0, Activated Partial Thromboplast Time 24 , C-Reactive Protein, Quantitative < 0.3, Triglycerides Level 69, Cholesterol Level 236H, LDL Cholesterol 131H, HDL Cholesterol 91H, Cholesterol/HDL Ratio 2.6L, Thyroid Stimulating Hormone (TSH) 1.330 Current Medications Medications (Trade) Dose Ordered Sig/Panda Route PRN Reason Start Time Stop Time Status Last Admin Dose Admin Acetaminophen (Tylenol) 650 mg Q4H PRN ORAL FEVER>100.5 08/14/17 13:30 09/13/17 13:29 08/14/17 21:01 Albuterol/ Ipratropium (DuoNeb 0.5-3(2.5)mg/3ml) 3 ml Q4H PRN HHN Shortness of Breath 08/14/17 13:30 08/19/17 13:29 Aspirin (ASA) 162 mg DAILY ORAL 08/15/17 09:00 09/14/17 08:59 08/15/17 09:40 Diltiazem HCl (Cardizem) 10 mg Q1H PRN IV heart rate more than 120, 08/14/17 13:30 09/13/17 13:29 Enalaprilat (Vasotec) 2.5 mg Q6H PRN IV sbp more than 160 08/14/17 13:30 09/13/17 13:29 Heparin Sodium (Porcine) (Heparin 5000 units/ml) 5,000 units EVERY 12 HOURS SUBQ 08/14/17 21:00 09/13/17 20:59 08/14/17 21:06 Ketorolac Tromethamine (Toradol 30mg) 30 mg Q6HR PRN IV Moderate Pain (Pain Scale 4-6) 08/14/17 13:30 08/19/17 13:29 Morphine Sulfate (Morphine Sulfate) 2 mg EVERY 4 HOURS PRN IVP severe Pain (Pain Scale 7-10) 08/14/17 13:30 08/21/17 13:29 Nitroglycerin (Ntg) 0.4 mg Q5M PRN SL Prn Chest Pain 08/14/17 13:30 09/13/17 13:29 Ondansetron HCl (Zofran) 4 mg Q6H PRN IVP Nausea & Vomiting 08/14/17 13:30 09/13/17 13:29 08/14/17 13:55 Pantoprazole (Protonix) 40 mg ACBREAKFAST ORAL 08/15/17 06:30 09/14/17 06:29 08/15/17 06:31 Polyethylene Glycol (Miralax) 17 gm DAILYPRN PRN ORAL Constipation 08/14/17 13:30 09/13/17 13:29 Temazepam (Restoril) 15 mg HSPRN PRN ORAL Insomnia 08/14/17 21:00 08/21/17 20:59 ELLY PAUL Aug 15, 2017 12:28
[2017-08-15] MEDS ORDERED: IBUPROFEN600 MG ORAL (12:44)
[2017-08-15] MEDS ORDERED: PANTOPRAZOLE SO20 MG ORAL (12:45)
[2017-08-15 12:47] VITALS: BP 96/67
--- NOTE | 2017-08-15 15:35 | Cardiology Report ---
APPROVED REPORT EXAM: Two-dimensional and M-mode echocardiogram with Doppler and color Doppler. INDICATION LV function M-Mode DIMENSIONS IVSd0.7 (0.7-1.1cm)Left Atrium (MM)3.4 (1.6-4.0cm) LVDd4.8 (3.5-5.6cm)Aortic Root3.0 (2.0-3.7cm) PWd1.0 (0.7-1.1cm)Aortic Cusp Exc.2.3 (1.5-2.0cm) LVDs2.7 (2.5-4.0cm) PWs2.0 cm Normal left ventricular chamber size, systolic function and wall motion. Left ventricular ejection fraction estimated to be 60-65 %. No evidence of left ventricular hypertrophy. No evidence of pericardial effusion. All other cardiac chamber sizes are within normal limits. Mild focal aortic valve sclerosis with adequate cusp excursion. Mildly thickened mitral valve leaflets with normal excursion. Mild mitral annulus and aortic root calcification. Pulmonic valve not well visualized. Normal tricuspid valve structure. IVC at normal size with physiologic collapse. A color flow and spectral Doppler study was performed and revealed: Trace aortic regurgitation. Mild mitral regurgitation. Mitral inflow indicates normal left ventricular diastolic function. Trace to mild tricuspid regurgitation. Tricuspid systolic velocities suggests peak right ventricular systolic pressure of 30 mmHg.
--- NOTE | 2017-08-16 15:11 | Discharge Summary ---
Discharge Summary Hospital Course Date of Admission Aug 14, 2017 at 09:44 Date of Discharge Aug 15, 2017 at 13:15 Admitting Diagnosis CHEST PAIN HPI Allie Carrero is a 52 year old female who was admitted on Aug 14, 2017 at 09: 44 for Chest Pain Hospital Course [id number] Discharge Discharge Disposition Patient was discharged to Home (01) Discharge Diagnoses: Deborah Dailey NP Aug 16, 2017 15:11
--- NOTE | 2017-08-17 02:45 | Discharge Summary 2 SIG ---
DATE OF ADMISSION: 08/14/2017 DATE OF DISCHARGE: 08/15/2017 FURNITURE MANAGER: Jason Leung M.D. Brief Hospital Course: The patient is a 52-year-old female with no known medical history, presented to ED complaining of chest pain. She had this type of pain for about a year ago. The patient was awakened early in the morning due to chest pain, started on the right-hand side, but then moved centrally. It has gotten worse and radiated to left hand. The patient is a driver education instructor, but denied any increased activity recently. On evaluation at ED, EKG was in normal sinus rhythm with normal axis. The patient was given Motrin, however, after receiving pain medications stated that the pain has gotten worse and felt a throbbing pressure. Repeat EKG was done and showed no ST to T-wave changes. She was given aspirin and nitrates. Chest x-ray showed no acute cardiopulmonary disease with no consolidation, no effusion, and no pneumothorax. She was then admitted to telemetry and underwent cardiac evaluation. Cardiac enzymes were negative and echocardiogram showed ejection fraction 60% to 65% with no evidence of left ventricular hypertrophy and no evidence of pericardial effusion. D-dimer was low. Suspect pain was musculoskeletal pain and not pleuritic or cardiac in origin based on description of exacerbating factors and relieving factors. Three troponins were negative. The patient was eventually discharged home. Advised to follow up with PMD. FINAL DIAGNOSES: 1. Costochondritis. 2. Chest pain, musculoskeletal in origin. 3. Chest wall syndrome. DISCHARGE DISPOSITION: The patient was discharged home. DISCHARGE MEDICATIONS: Refer to medication list. FOLLOWUP: The patient was advised to follow up with PMD in a week. Beatriz Rodriguez M.D. I have been assigned to dictate discharge summary on this account and I was not involved in the patient's management. Deborah Dailey N.P. DR: DANIELA JOB#: [id number] CC: CASSIUS
--- NOTE | 2017-08-17 15:44 | Cardiology Report ---
APPROVED REPORT EKG Measurement Heart [id number] Normal sinus rhythm Nonspecific ST and T wave abnormality Abnormal ECG
--- NOTE | 2017-08-17 15:46 | Cardiology Report ---
APPROVED REPORT EKG Measurement Heart [id number] ND 184P80 [id number] Normal sinus rhythm Normal ECG
== END 2017-08-15 13:15 | disposition home or self-care (01) | DRG 203 ==
LOC: EMR 07:20 → 2E 09:44 → EDBEDREQ 09:59
DX: M94.0 Chondrocostal junction syndrome [Tietze] (principal); R07.1 Chest pain on breathing; R07.89 Other chest pain
CPT/HCPCS: 36415; 71010; 80053; 80061; 82550; 82553; 83880; 84443; 84484; 85025; 85379; 85610; 85730; 86140; 93005; 93306; 94664; 99285; J2405

== ENCOUNTER 2017-12-11 21:07 | Emergency (ER) | payer MEDICAID ==
[~2017-12-11] VITALS: Ht 167.6 cm; Wt 63.5 kg
[~2017-12-11 21:07] MED LIST changes: +PANTOPRAZOLE SO20 MG ORAL; +PROTONIX40 MG ORAL
--- NOTE | 2017-12-11 21:25 | Emergency Room Report ---
History of Present Illness General Chief Complaint: Skin Rash/Abscess Source: Patient Present Illness HPI Patient presents with itching and burning in the upper part of her shoulders and lower neck. She's not sure if these are bites. This started at [employer]. She denies any new soaps, clothes, foods. She's never had a reaction like this before. Tetanus is up-to-date. She denies medical problems. Denies fevers, chills, nausea, vomiting, diarrhea dysuria. No medical problems. Allergies: Coded Allergies: No Known Allergies (Verified , 10/10/08) Patient History Past Medical History: see triage record Social History: Denies: smoking, alcohol use, drug use Social History Narrative from home Reviewed Nursing Documentation: PMH: Agreed, PSxH: Agreed Nursing Documentation-PMH Hx Cardiac Problems: No Hx Cancer: No Hx Gastrointestinal Problems: No Review of Systems All Other Systems: negative except mentioned in HPI Physical Exam Vital Signs Date Time Temp Pulse Resp B/P (MAP) Pulse Ox O2 Delivery O2 Flow Rate FiO2 12/11/17 21:11 98.2 86 18 112/72 97 Room Air Sp02 EP Interpretation: reviewed, normal General Appearance: normal inspection, well appearing, no apparent distress Head: normocephalic, atraumatic Eyes: bilateral eye normal inspection, bilateral eye PERRL ENT: hearing grossly normal, normal voice Neck: full range of motion, supple Respiratory: no respiratory distress, speaking full sentences Musculoskeletal: no calf tenderness Neurologic: alert, normal gait, grossly normal Psychiatric: mood/affect normal Skin: warm/dry, other - wheel flare reaction shoulders and neck bilaterally Medical Decision Making Diagnostic Impression: Primary Impression: Hives ER Course Patient presents with [id number] reaction in her shoulders and lower neck. Differential includes hives, bug bites, allergic reaction amongst others. The are no target lesions. The fact that they're bilateral excludes shingles. Patient will be treated with hydrocortisone and antibiotic ointment. The patient is stable for outpatient observation and treatment Last Vital Signs Date Time Temp Pulse Resp B/P (MAP) Pulse Ox O2 Delivery O2 Flow Rate FiO2 12/11/17 21:38 98.2 86 18 112/72 97 Room Air Status: improved Disposition: HOME, SELF-CARE Condition: Improved Scripts Bacitracin (Bacitracin) 28.4 Gm Oint...g. 1 APPLIC TOPIC BID, #10 GM Prov: Evens Ayala M.D. 12/11/17 Hydrocortisone 1% cream (Hydrocortisone 1% cream) Y Cr 1 APPLIC RC TID, #20 GM Prov: Evens Ayala M.D. 12/11/17 Evens Ayala M.D. Dec 11, 2017 21:25
[2017-12-11] MEDS ORDERED: HYDROCORTISON28.4 G5 RC (21:27)
[2017-12-11] MEDS ORDERED: BACITRACIN15 GM TOPIC (21:27)
[2017-12-11 21:38] VITALS: BP 112/72
== END 2017-12-11 21:39 | disposition home or self-care (01) ==
LOC: EMR 21:22
DX: L50.9 Urticaria, unspecified (principal)
CPT/HCPCS: 99283

== ENCOUNTER 2018-01-26 06:57 | Emergency (ER) | payer MEDICAID ==
[~2018-01-26] VITALS: Ht 167.6 cm; Wt 65.8 kg
[~2018-01-26 06:57] MED LIST changes: +BACITRACIN15 GM TOPIC; +HYDROCORTISON28.4 G5 RC
[2018-01-26 07:15] VITALS: BP 107/74
[2018-01-26] MEDS ORDERED: Tetracaine 0.5% Opth 4ml Soln ONE (07:28)
[2018-01-26] MEDS ORDERED: Fluorescein Strips ONE (07:28)
[2018-01-26] MEDS ORDERED: [UNRECOGNIZED DRUG - OTHER] IRRIG ONE (07:30)
[2018-01-26] MEDS ORDERED: Fluorescein Strips OP ONE (07:30)
[2018-01-26] MEDS ORDERED: Tetracaine 0.5% Opth 4ml Soln OP ONE (07:30)
--- NOTE | 2018-01-26 07:48 | Emergency Room Report ---
History of Present Illness General Chief Complaint: Eye Problems Source: Patient Present Illness HPI 52yo f presents with pain and redness to her left eye as well as crusting in both eyes, Symptoms started a few days ago, she also noticed some slight blurred vision left eye and increasing tearing She denies blind spots, denies floaters, denies flashing lights but was seeing reddish and yellowish tint to her vision Denies curtain closing over visual salmon She does report increasing discharge or redness and pain as mentioned. She reports she does not wear contact lenses, and is unsure whether or not she may have injured her eyeball by scratching She does wear reading glasses but did not bring them with her Allergies: Coded Allergies: No Known Allergies (Verified , 10/10/08) Patient History Past Medical History: see triage record Reviewed Nursing Documentation: PMH: Agreed, PSxH: Agreed Nursing Documentation-PMH Past Medical History: No Stated History Hx Cardiac Problems: No Hx Cancer: No Hx Gastrointestinal Problems: No Review of Systems All Other Systems: negative except mentioned in HPI Physical Exam Vital Signs Date Time Temp Pulse Resp B/P (MAP) Pulse Ox O2 Delivery O2 Flow Rate FiO2 01/26/18 06:59 98.2 67 16 107/74 99 Room Air 98.2 Sp02 EP Interpretation: reviewed, normal General Appearance: no apparent distress, alert, non-toxic Head: normocephalic Eyes: left eye visual acuity - Slight decreased visual acuity L eye with tears noted, left eye Scleral Injection, bilateral eye normal inspection, bilateral eye PERRL, bilateral eye fluoroscene uptake - negative, but patient felt complete resolution of pain with tetracaine drops, bilateral eye EOMI, bilateral eye other - normal confrontation exam with no visual field cuts ENT: normal ENT inspection, hearing grossly normal, normal pharynx, no angioedema, normal voice, moist mucus membranes Neck: normal inspection, full range of motion, supple, supple/symm/no masses Respiratory: chest non-tender, lungs clear, normal breath sounds, chest symmetrical, palpation of chest normal Cardiovascular #1: normal peripheral pulses, regular rate, rhythm Cardiovascular #2: 2+ radial (R), 2+ radial (L) Gastrointestinal: normal inspection, non tender, soft, no mass, no guarding, no rebound Rectal: deferred Genitourinary: normal inspection, no CVA tenderness Musculoskeletal: back normal, gait/station normal, normal range of motion, non- tender, no calf tenderness Neurologic: alert, responsive, armature repairer III-XII nml as tested, motor strength/tone normal, sensory intact, speech normal Psychiatric: judgement/insight normal, memory normal, mood/affect normal, no suicidal/homicidal ideation Skin: normal color, no rash, warm/dry, normal turgor Lymphatic: no adenopathy Procedures Eye Procedure Eye Procedure : Consent: Verbal Alcaine Drops Administered: Yes - tetracaine drops; fluorescein and sanchez lamp used, negative uptake but + instant pain relief Eye Irrigated w/ Saline (ccs): 30 Patient Tolerated: Well Complications: None Medical Decision Making Reaction to Intervention: Improved Diagnostic Impression: Primary Impression: Eye problem Additional Impression: Corneal abnormality ER Course Patient with mild injection and slighlty decreased L eye acuity Pain resolved with tetracaine drops No obvious abrasion with fluorescein but given response to tetracaine will treat with abx Presumptive corneal abrasion Decreased visual acuity likely 2/2 excess tear production Given history and exam, do not suspect retinal detachment, optic neuritis, endophtalmitis, glaucoma Will dc with rx for abx ointment, f/u with ophthalmology Last Vital Signs Date Time Temp Pulse Resp B/P (MAP) Pulse Ox O2 Delivery O2 Flow Rate FiO2 01/26/18 07:15 98.2 16 107/74 99 Room Air 98.2 01/26/18 06:59 67 Status: improved Disposition: HOME, SELF-CARE Condition: Stable Referrals: NON PHYSICIAN (PCP) KOLTON AGUILAR M.D Jan 26, 2018 07:48
[2018-01-26] MEDS ORDERED: ERYTHROMYCIN3.5 GM BOTH EYES (07:51)
[2018-01-26 08:02] VITALS: BP 107/74
== END 2018-01-26 08:03 | disposition home or self-care (01) ==
LOC: EMR 07:25
DX: H57.8 Other specified disorders of eye and adnexa (principal); H53.8 Other visual disturbances
CPT/HCPCS: 99283

== ENCOUNTER 2018-09-27 19:38 | Emergency (ER) | payer MEDICAID, OTHER ==
[~2018-09-27] VITALS: Ht 170.2 cm; Wt 61.2 kg
[~2018-09-27 19:38] MED LIST changes: +ERYTHROMYCIN3.5 GM BOTH EYES
[2018-09-27 20:00] VITALS: BP 102/67
--- NOTE | 2018-09-27 21:06 | Emergency Room Report ---
History of Present Illness General Chief Complaint: Upper Extremity Injury Present Illness HPI Ms. Carrero is a healthy 53-year-old female who injured her right forearm 2 days ago. She ran into counter and braced herself before she fell. She has midforearm pain. Moderately severe. dull pain is worse with movement palpation. She did try ibuprofen prior to arrival. Allergies: Coded Allergies: No Known Allergies (Verified , 10/10/08) Patient History Past Medical History: see triage record Last Menstrual Period: 7 years ago Now: No Reviewed Nursing Documentation: PMH: Agreed; PSxH: Agreed Nursing Documentation-PMH Hx Cardiac Problems: No Hx Cancer: No Hx Gastrointestinal Problems: No Review of Systems Constitutional: Denies: fever, malaise Neurological: Denies: numbness, paresthesia, seizure, tingling Physical Exam Vital Signs Date Time Temp Pulse Resp B/P (MAP) Pulse Ox O2 Delivery O2 Flow Rate FiO2 09/27/18 19:49 98.2 77 16 102/67 96 Room Air Sp02 EP Interpretation: reviewed, normal General Appearance: normal inspection, well appearing, no apparent distress, alert, GCS 15, non-toxic Eyes: bilateral eye normal inspection Musculoskeletal: other - no snuffbox tenderness, no deformity Neurologic: normal inspection, alert, oriented x3, motor strength/tone normal, sensory intact Skin: normal inspection, normal color, no rash, warm/dry Medical Decision Making Diagnostic Impression: Primary Impression: Strain of forearm, right ER Course Right forearm strain, without wrist injury, pain in his mid forearm, 2 views of the right forearm obtained, no fracture no dislocation or soft tissue swelling. Patient given right upper extremity sling forpain control Last Vital Signs Date Time Temp Pulse Resp B/P (MAP) Pulse Ox O2 Delivery O2 Flow Rate FiO2 09/27/18 19:49 98.2 77 16 102/67 96 Room Air Disposition: HOME, SELF-CARE Condition: Stable Mary Chatterjee MD Sep 27, 2018 21:06
[2018-09-27 21:15] VITALS: BP 102/67
--- NOTE | 2018-09-27 21:33 | Diagnostic Imaging Report ---
EXAM: XR Right Forearm, 2 Views CLINICAL HISTORY: PAIN TECHNIQUE: Frontal and lateral views of the right forearm. COMPARISON: No relevant prior studies available. FINDINGS: Bones/joints: No acute fracture. Soft tissues: No radiodense foreign body. IMPRESSION: No acute fracture.
== END 2018-09-27 21:15 | disposition home or self-care (01) ==
LOC: EMR 20:09
DX: S56.911A Strain of unspecified muscles, fascia and tendons at forearm level, right arm, initial encounter (principal); W19.XXXA Unspecified fall, initial encounter; Y92.9 Unspecified place or not applicable
CPT/HCPCS: 99283

== ENCOUNTER 2019-09-14 07:45 | Emergency (ER) | payer MEDICAID, OTHER ==
[~2019-09-14] VITALS: Ht 167.6 cm; Wt 65.8 kg
[2019-09-14 08:00] VITALS: BP 108/71
--- NOTE | 2019-09-14 08:01 | NUR ---
ED Nurse Note: Patient walked in to ER from home due to both hands pain 10/10 radiates to both shoulders. Patient denied trauma. Patient alert and oriented x4 and ambulatory. Skin clean and intact. Calm and cooperative. No acute distress noted at this moment.
[2019-09-14] MEDS ORDERED: Diclofenac 1% Gel 100gm TOPIC ONE (08:15)
[2019-09-14] MEDS ORDERED: Acetaminophen 500mg (ES) tab ORAL ONE (08:15)
--- NOTE | 2019-09-14 08:15 | Emergency Room Report ---
History of Present Illness General Chief Complaint: Pain Source: Patient Present Illness HPI Patient is a 54-year-old female who presented after increased bilateral hand pain as well as neck and back pain. Patient reports having recent onset of upper respiratory infection. She had increased nasal congestion. She denies any fever. She had been having increased pain to both hands as well as to her neck and back. She had prior history of similar joint pains in the past. She had previously been taking Tylenol without much improvement. She had previous imaging studies on her hands at this hospital. These had showed degenerative changes without evidence of any definite fractures. Patient denies any recent trauma. She denies any prior history of diabetes or hypertension. Allergies: Coded Allergies: No Known Allergies (Verified , 10/10/08) Patient History Past Medical History: see triage record Last Menstrual Period: menopause Reviewed Nursing Documentation: PMH: Agreed; PSxH: Agreed Nursing Documentation-PM Past Medical History: No Stated History Hx Cardiac Problems: No Hx Cancer: No Hx Gastrointestinal Problems: No Review of Systems All Other Systems: negative except mentioned in HPI Physical Exam Vital Signs Date Time Temp Pulse Resp B/P (MAP) Pulse Ox O2 Delivery O2 Flow Rate FiO2 09/14/19 07:52 98.1 64 18 108/71 (83) 95 Room Air General Appearance: well appearing, no apparent distress, alert, GCS 15, non- toxic Head: normocephalic, atraumatic ENT: hearing grossly normal, normal voice Neck: full range of motion, supple Respiratory: chest non-tender, lungs clear, normal breath sounds, no respiratory distress, speaking full sentences Cardiovascular #1: normal peripheral pulses, no edema Gastrointestinal: normal inspection, normal bowel sounds, non tender, soft Musculoskeletal: other - polyarticular swelling to hands without erythema or warmth Neurologic: normal inspection, alert, oriented x3, responsive, soil conservation aide III-XII nml as tested, normal gait, other - normal proprioception Psychiatric: mood/affect normal Skin: no rash Medical Decision Making Diagnostic Impression: Primary Impression: Acute arthritis ER Course Patient presented for bilateral hand pain. Differential diagnosis include was not limited to arthritis, septic joint, viral infection, among others. Patient has a benign exam and does not appear to require any imaging or laboratory testing at this time. Patient was noted to have some chronic history of joint pains however this had become somewhat worse. Patient does appear to have some inflammatory changes to the interphalangeal and metacarpal joints of both hands. There does not appear to be any evidence of acute septic joint. Patient has normal proprioception. She does not show any evidence of CVA. She has preserved range of motion of her neck. Patient appears to be stable for outpatient management and trial of oral steroids. She was given prescription for prednisone as well as Voltaren gel. She was advised to continue taking Tylenol. She is advised to follow-up with her primary care physician for further evaluation of arthritis pain. She is advised to return if worse. This medical record is generated with [employer] industrial spray painter software. There may be some industrial spray painter discrepancies related to use of this software Last Vital Signs Date Time Temp Pulse Resp B/P (MAP) Pulse Ox O2 Delivery O2 Flow Rate FiO2 09/14/19 08:00 98.1 78 18 108/71 95 Room Air Status: improved Disposition: HOME, SELF-CARE Condition: Stable Scripts Prednisone* (PREDNISONE*) 20 Mg Tablet 60 MG ORAL DAILY, #12 TAB Prov: Stoney García MD 09/14/19 Diclofenac Sodium (VOLTAREN) 100 Gm Gel..gram. 5 GM TP DAILY, #100 GM Prov: Stoney García MD 09/14/19 Stoney García MD Sep 14, 2019 08:15
[2019-09-14] MEDS ORDERED: PREDNISONE20 MG ORAL (08:17)
[2019-09-14] MEDS ORDERED: VOLTAREN100 G1 TP (08:17)
--- NOTE | 2019-09-14 08:27 | NUR ---
ED Nurse Note: Pt cleared by health care Provider for discharge. DC instructions/ electronic prescription was given and explained to pt and verbalized understanding of teachings. All medical deviecs such as ID band removed. Pt is AAO x4, ambulatory and left with all personal belongings.
== END 2019-09-14 08:30 | disposition home or self-care (01) ==
LOC: EDBD 07:45 → EMR 08:29
DX: M19.90 Unspecified osteoarthritis, unspecified site (principal)
CPT/HCPCS: J7512; Z7502; 99282

== ENCOUNTER 2020-12-18 19:17 | Emergency (ER) | payer MEDICAID ==
[~2020-12-18] VITALS: Ht 167.6 cm; Wt 68.0 kg
[~2020-12-18 19:17] MED LIST changes: +VOLTAREN100 G1 TP
--- NOTE | 2020-12-18 19:25 | NUR ---
patient presented to ambulatory triage complaints of right shoulder pain with decreased range of motion x 2days post a fall on the right side, vitals are stable, patient is calm
--- NOTE | 2020-12-18 19:38 | Emergency Room Report ---
History of Present Illness General Chief Complaint: Upper Extremity Injury Source: Patient Present Illness HPI Disclaimer: Please note that this report is being documented using [employer] technology. This can lead to erroneous entry secondary to incorrect interpretation by the dictating instrument. HPI: 55-year-old [id number] female presents for evaluation of shoulder pain. She was picking up her grandson and fell forward impacting on her right shoulder 2 days ago. Reports pain and difficulty with range of motion. Denies numbness or tingling. Has been using Tylenol and Motrin. Denies significant swelling. No prior history of shoulder injury. No other injury reported fall. PMH: Reviewed PSH: Reviewed Allergies: Reviewed Social Hx: Reviewed Allergies: Coded Allergies: No Known Allergies (Verified , 10/10/08) COVID-19 Screening Contact w/high risk pt: No Experienced COVID-19 symptoms?: No COVID-19 Testing performed STATISTICAL SECRETARY: No Nursing Documentation-PMH Hx Cardiac Problems: No Hx Cancer: No Hx Gastrointestinal Problems: No Review of Systems All Other Systems: negative except mentioned in HPI Physical Exam Vital Signs Date Time Temp Pulse Resp B/P (MAP) Pulse Ox O2 Delivery O2 Flow Rate FiO2 12/18/20 19:19 98.2 92 18 111/62 (78) 95 Room Air General: Awake and alert, no acute distress HEENT: NC/AT. EOMI. Resp: Normal work of breathing Skin: Intact. No abrasions, laceration or rash over the exposed skin MSK: Normal tone and bulk. Moving all extremities. No obvious deformity. No step-off in the right shoulder. Sensation intact over the right deltoid. Patient has full range of motion at the elbow, wrist and hand. Difficulty with abduction, flexion extension and rotation at the elbow secondary to pain. No palpable deformity. Neuro: Awake and alert. Mentating appropriately Medical Decision Making Diagnostic Impression: Primary Impression: Shoulder contusion ER Course Is a 55-year-old female presenting for evaluation of right shoulder pain after a fall 2 days ago. No bony injury or dislocation identified on x-ray. Likely contusion. Patient will continue NSAIDs but will give her stronger pain medication for breakthrough pain only. Patient placed in a sling though encouraged her to maintain movement exercises to prevent locking up. She is neurologically intact and no other injuries identified. Stable for outpatient f [facility] I recommended she touch base with her PMD regarding referral to physical therapy or orthopedic surgery as needed. Discussed reasons to return to the emergency department. She understands and agrees with the treatment plan. Other X-Ray Diagnostic Results Other X-Ray Diagnostic Results : X-Ray ordered: Right shoulder # of Views/Limited Vs Complete: 3 View Indication: Pain EP Interpretation: Yes Interpretation: no dislocation, no soft tissue swelling, no fractures Impression: No acute disease Electronically Signed by: Electronically signed by Dr. Javier Celeste MD Last Vital Signs Date Time Temp Pulse Resp B/P (MAP) Pulse Ox O2 Delivery O2 Flow Rate FiO2 12/18/20 19:19 98.2 92 18 111/62 (78) 95 Room Air Disposition: HOME, SELF-CARE Condition: Stable Scripts Hydrocodone/Acetaminophen 5-325* (HYDROCODONE/ACETAMINOPHEN 5-325*) 1 Each Tablet 1 TAB ORAL Q6H PRN for For Pain, #12 TAB 0 Refills Prov: Javier Celeste MD 12/18/20 Javier Celeste MD Dec 18, 2020 19:38
[2020-12-18 19:39] VITALS: BP 111/62
[2020-12-18] MEDS ORDERED: HYDROcodone/Acetamin 7.5/325 tab ORAL ONE (19:45)
--- NOTE | 2020-12-18 20:37 | Diagnostic Imaging Report ---
EXAM: XR Right Shoulder Complete, 2 or More Views CLINICAL HISTORY: INJ TECHNIQUE: Two or more views of the right shoulder. COMPARISON: Chest radiographs 08/14/17 FINDINGS: Bones/joints: Unremarkable. No acute fracture. No dislocation. Soft tissues: Unremarkable. IMPRESSION: No acute traumatic injury.
[2020-12-18] MEDS ORDERED: HYDROCODON-ACE1 EA15 ORAL (20:44)
[2020-12-18 20:46] VITALS: BP 138/76
--- NOTE | 2020-12-18 20:48 | NUR ---
ER DISCHARGE NOTE: Patient is cleared to be discharged per ERMD, pt is aox4, on room air, with stable vital signs. pt was given dc and prescription instructions, pt was able to verbalize understanding, pt id band and iv site removed without complications. pt is able to ambulate with steady gait. pt took all belongings.
== END 2020-12-18 20:50 | disposition home or self-care (01) ==
LOC: EMR 20:13
DX: S40.011A Contusion of right shoulder, initial encounter (principal); W01.10XA Fall on same level from slipping, tripping and stumbling with subsequent striking against unspecified object, initial encounter; Y93.89 Activity, other specified; Y92.9 Unspecified place or not applicable
CPT/HCPCS: 73030; Z7502; 99283